=== PATIENT | male | born 1960 | race Caucasian/White ===

== ENCOUNTER 2016-12-03 19:41 | Emergency (ER) | payer SELFPAY ==
[~2016-12-03] VITALS: Ht 177.8 cm; Wt 88.0 kg
[2016-12-03 19:55] VITALS: BP 135/72; PULSE 61; RESP 18; TEMP 98; O2SAT 96
[2016-12-03] MEDS ORDERED: SODIUM CHLOR 0.9% 1000 ML INJ 1,000 ML IV ONE (22:00)
[2016-12-03] MEDS ORDERED: SODIUM CHLORIDE 0.9% FLUSH 10 ML FLUSH IVF PRN (22:00)
[2016-12-03] MEDS ORDERED: KETOROLAC TROMETHAMINE 30 MG/ML (IVP) VIAL IVP ONE (22:00)
--- NOTE | 2016-12-03 22:05 | PD ---
HPI Chief Complaint: GI Complaint Time Seen by Provider: 22:00 Travel History International Travel<30 days: No Contact w/Intl Traveler<30days: No Traveled to known affect area: No History of Present Illness HPI 56-year-old male presents to the emergency department complaining of left flank pain and back pain. Patient states he has had intermittent left flank pain and low back pain for approximately 1-2 months but then today after doing of a twisting-type activity had increased mid to low back pain. Patient denies any lower extremity numbness tingling weakness or bladder or bowel dysfunction. No saddle anesthesia. Patient is also noticed lower abdominal discomfort. Patient denies any dysuria frequency or urgency. Patient states flank pain increasing today. Radiates to the left lower quadrant. No noted hematuria. Patient denies treatment or diagnosis of hypertension dyslipidemia CAD or diabetes. No report of peripheral vascular disease. No report of claudication. Patient denies chest pain or shortness of breath. Patient's had soft stool but denies diarrhea no hematochezia or melena. Patient has had no febrile illness. Patient has taken no medications today for symptoms. Patient has been treated in the past for bronchitis and smoking cigarettes one year ago. Patient denies other concerns or complaints. PFSH Past Medical History Narrative Medical Arthritis, bronchitis,Bipolar disorder, L4 fracture, peripheral neuropathy, no tobacco use times one year; nursing notes reviewed Arthritis: Yes (HANDS AND KNEE'S) Asthma: No Blood Disorders: No Bipolar Disorder: Yes Anxiety: Yes Depression: Yes Heart Rhythm Problems: No Cancer: No Cardiovascular Problems: No High Cholesterol: No Chest Pain: No Congestive Heart Failure: No COPD: No Cerebrovascular Accident: No Diabetes: No Diminished Hearing: No Endocrine: No Gastrointestinal Disorders: Yes GERD: Yes Genitourinary: No Headaches: No Hiatal Hernia: No Hypertension: No Immune Disorder: No Kidney Stones: No Musculoskeletal: Yes (FX L4 IN 1990, FX LEFT WRIST 3 XS CHILD BEFORE AGE 4) Neurologic: Yes (NUMBNESS IN FEET RESOLVED) Psychiatric: Yes Reproductive: No Respiratory: Yes (CHRONIC BRONCHITIS) Integumentary: Yes (STAPH INFECTION ON BACK) Immunizations Current: No Migraines: No Myocardial Infarction: No Renal Failure: No Seizures: No Sleep Apnea: No Thyroid Disease: No Ulcer: No Influenza Vaccination: No Past Surgical History Abdominal Surgery: No AICD: No Arteriovenous Shunt: No Cardiac Surgery: No Ear Surgery: No Endocrine Surgery: No Eye Surgery: No Genitourinary Surgery: No Gynecologic Surgery: No Insulin Pump: No Joint Replacement: No Oral Surgery: Yes ( A CHILD) Pacemaker: No Thoracic Surgery: No Other Surgery: Yes (LONG TIME AGO SURGERY ON MOUTH) Social History Alcohol Use: No (QUIT 2 1/2 YRS) Tobacco Use: Yes (QUIT 11/30/15) Substance Use: No Allergies-Medications (Allergen,Severity, Reaction): Coded Allergies: Cephalosporins (Verified Allergy, Severe, Anaphylaxis, 12/03/16) Penicillin (Verified Allergy, Severe, Anaphylaxis, 12/03/16) Reported Meds & Prescriptions Reported Meds & Active Scripts Active Tramadol (Tramadol HCl) 50 Mg Tab 50 Mg PO Q6H PRN Robaxin (Methocarbamol) 750 Mg Tab 750 Mg PO Q6HR Review of Systems Except as stated in HPI: all other systems reviewed are Neg General / Constitutional: No: Fever, Chills HENT: No: Congestion Cardiovascular: No: Chest Pain or Discomfort Respiratory: No: Shortness of Breath Gastrointestinal: Positive: Diarrhea, Abdominal Pain (loose stool), No: Nausea , Vomiting Genitourinary: Positive: Flank Pain ( left lower quadrant) Musculoskeletal: Positive: Myalgias, Arthralgias, Pain (middle and low back), No: Cramping, Edema Skin: No Rash Neurologic: No: Weakness Psychiatric: No: Anxiety Endocrine: No: Heat Intolerance Hematologic/Lymphatic: No: Easy Bruising Physical Exam Narrative GENERAL: Well-developed nourished female in no acute distress no respiratory distress SKIN: Warm and dry. HEAD: Normocephalic. EYES: No scleral icterus. No injection or drainage. NECK: Supple, trachea midline. No JVD or lymphadenopathy. CARDIOVASCULAR: Regular rate and rhythm without murmurs, gallops, or rubs. RESPIRATORY: Breath sounds equal bilaterally. No accessory muscle use. GASTROINTESTINAL: Abdomen soft, non-tender, nondistended. MUSCULOSKELETAL: No cyanosis, or edema. Bilateral radial pulses 2+ to palpation bilateral dorsalis pedis pulses 2+ to palpation with brisk capillary refill is 2 seconds per digit BACK: Nontender without obvious deformity except tenderness to palpation along the lower thoracic and lumbar spine and over the SI joints left greater than right. Left-sided CVA tenderness. Data Data Last Documented VS Vital Signs Date Time Temp Pulse Resp B/P Pulse Ox O2 Delivery O2 Flow Rate FiO2 12/03/16 23:00 60 15 140/65 98 Room Air 12/03/16 19:55 98.0 Orders Complete Blood Count With Diff (12/03/16 21:58) Basic Metabolic Panel (Bmp) (12/03/16 21:58) Urinalysis - C+S If Indicated (12/03/16 21:58) Ct Abd/Pel W/O Iv Contrast (12/03/16 21:58) Ecg Monitoring (12/03/16 21:58) Iv Access Insert/Monitor (12/03/16 21:58) Ketorolac Inj (Toradol Inj) (12/03/16 22:00) Sodium Chloride 0.9% Flush (Ns Flush) (12/03/16 22:00) Sodium Chlor 0.9% 1000 Ml Inj (Ns 1000 M (12/03/16 22:00) Labs Laboratory Tests Test 12/03/16 12/03/16 12/03/16 22:49 22:55 23:33 White Blood Count 8.0 TH/MM3 Red Blood Count 5.12 MIL/MM3 Hemoglobin 15.8 GM/DL Hematocrit 48.2 % Mean Corpuscular Volume 94.1 FL Mean Corpuscular Hemoglobin 30.8 PG Mean Corpuscular Hemoglobin 32.7 % Concent Red Cell Distribution Width 13.9 % Platelet Count 252 TH/MM3 Mean Platelet Volume 9.1 FL Neutrophils (%) (Auto) 45.3 % Lymphocytes (%) (Auto) 41.5 % Monocytes (%) (Auto) 9.1 % Eosinophils (%) (Auto) 3.0 % Basophils (%) (Auto) 1.1 % Neutrophils # (Auto) 3.7 TH/MM3 Lymphocytes # (Auto) 3.3 TH/MM3 Monocytes # (Auto) 0.7 TH/MM3 Eosinophils # (Auto) 0.2 TH/MM3 Basophils # (Auto) 0.1 TH/MM3 CBC Comment DIFF FINAL Differential Comment Urine Color YELLOW Urine Turbidity CLEAR Urine pH 6.0 Urine Specific [place] 1.013 Urine Protein NEG mg/dL Urine Glucose (UA) NEG mg/dL Urine Ketones NEG mg/dL Urine Occult Blood TRACE Urine Nitrite NEG Urine Bilirubin NEG Urine Leukocyte Esterase NEG Urine RBC 4-9 /hpf Urine WBC 0-2 /hpf Urine Squamous Epithelial 0-5 /hpf Cells Urine Mucus MOD /lpf Microscopic Urinalysis Comment CULT NOT INDICATED Sodium Level 141 MEQ/L Potassium Level 4.2 MEQ/L Chloride Level 109 MEQ/L Carbon Dioxide Level 25.4 MEQ/L Anion Gap 7 MEQ/L Blood Urea Nitrogen 7 MG/DL Creatinine 1.00 MG/DL Estimat Glomerular Filtration 77 ML/MIN Rate Random Glucose 103 MG/DL Calcium Level 8.3 MG/DL MDM Medical Decision Making Medical Screen Exam Complete: Yes Emergency Medical Condition: Yes Medical Record Reviewed: Yes Interpretation(s) CBC & BMP Diagram 12/03/16 22:49 12/03/16 23:33 UA: grossly wnl Last Impressions Abdomen/Pelvis CT 12/03/162157 Signed Impressions: Service Date/Time: Saturday, December 03, 2016 22:07 - CONCLUSION: 1. Mild atherosclerotic disease. 2. Right renal cyst. Frank Connelly MD Vital Signs Date Time Temp Pulse Resp B/P Pulse Ox O2 Delivery O2 Flow Rate FiO2 12/03/16 23:00 60 15 140/65 98 Room Air 12/03/16 19:55 98.0 61 18 135/72 96 Differential Diagnosis Musculoskeletal pain, sciatica, sacroiliitis, HNP, renal colic, UTI, diverticulitis Narrative Course Patient aware of plan to collect specimens to send for evaluation as well as CT kidney stone protocol; evaluate for possible renal colic in view of left lower quadrant pain evaluate for diverticulitis and even assess for vascular abnormality. Patient with obvious musculoskeletal pain and sciatica by physical exam. 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 @ 23:55 patient clinically improved and informed of available diagnostics results Lab values resulted after re-collect agent is stable for outpatient management and follow-up with primary care provider provided resources for community clinic. Diagnosis Primary Impression: Sciatica Qualified Code: M54.32 - Sciatica of left side Referrals: [facility] call for appointment Primary Care Physician as needed Patient Instructions: General Instructions Additional Instructions: Increase fluid hydration Apply moist heat intermittently to affected areas of spasm May use Ultram/tramadol as prescribed as needed for pain greater than 6/10 in intensity use with caution as may impair judgment delay reaction time for increased risk for fall do not use this medication if drinking alcoholic beverages and do not use if driving May use muscle relaxant Robaxin as prescribed as needed use with caution as may impair judgment delay reaction time or increases for fall do not take this medication with alcoholic beverages and do not take while driving May use ibuprofen/Advil/Motrin 600 mg as often as every 6 hours or up to 800 mg as often as every 8 hours avoid high-dose as for greater than 2-3 days. Return to the emergency department for any concerns or change in condition Med/Other Pt SpecificInfo: Prescription(s) given Scripts Tramadol 50 Mg Tab50 Mg PO Q6H PRN (PAIN) #12 TAB Ref 0 Prov:Yocasta Padilla MD 12/03/16 Methocarbamol (Robaxin)750 Mg Glp731 Mg PO Q6HR #12 TAB Ref 0 Prov:Yocasta Padilla MD 12/03/16 Disposition: 01 DISCHARGE HOME Condition: Stable Yocasta Padilla MD Dec 03, 2016 22:04
--- NOTE | 2016-12-03 22:36 | RADHPO ---
EXAM DATE/TIME: 12/03/2016 22:07 [facility] COMPARISON: No previous studies available for comparison. INDICATIONS : Bilateral flank and back pain. ORAL CONTRAST: No oral contrast ingested. RADIATION DOSE: 19.05 CTDIvol (mGy) MEDICAL HISTORY : Gastroesophageal reflux disease. SURGICAL HISTORY : None. ENCOUNTER: Initial ACUITY: 1 day PAIN SCALE: 7/10 LOCATION: Bilateral flank Back. TECHNIQUE: Volumetric scanning of the abdomen and pelvis was performed. Using automated exposure control and ad justment of the mA and/or kV according to patient size, radiation dose was kept as low as reasonably achievable to obtain optimal diagnostic quality images. FINDINGS: There is a 2.1 cm cyst off the lower pole of the right kidney. There were no calculi or hydronephrosi s identified in either kidney. Pancreas, spleen, liver, gallbladder, appendix, stomach, small bowel, large bowel and urinary bladder are unremarkable. There is no adenopathy. No inflammatory changes are seen within the abdomen or pelvis. Prostate unremarkable. Scattered atherosclerotic calcifications o f the aorta and iliac vessels are noted. Lung bases are clear. Osseous structures are intact. CONCLUSION: 1. Mild atherosclerotic disease. 2. Right renal cyst. Frank Connelly MD on December 03, 2016 at 22:32 Board Certified Radiologist. This report was verified electronically.
[2016-12-03 22:56] LABS: AUTOMATED NEUTROPHIL # 3.7 TH/MM3 (1.8-7.7); BASOPHIL # 0.1 TH/MM3 (0-0.2); BASOPHIL % 1.1 % (0.0-2.0); EOSINOPHIL # 0.2 TH/MM3 (0-0.4); HEMATOCRIT 48.2 % (39.0-51.0); HEMO FLAGS DIFF FINAL; LYMPH % 41.5 % (9.0-44.0); LYMPHOCYTE # 3.3 TH/MM3 (1.0-4.8); MEAN CELL VOLUME 94.1 FL (80.0-100.0); MEAN CORPUSCULAR HEMOGLOBIN 30.8 PG (27.0-34.0); MEAN CORPUSCULAR HGB CONC 32.7 % (32.0-36.0); MONO % 9.1 % (0.0-8.0); NEUT % 45.3 % (16.0-70.0); PLATELET COUNT 252 TH/MM3 (150-450); RED BLOOD COUNT 5.12 MIL/MM3 (4.50-5.90); RED CELL DISTRIBUTION WIDTH 13.9 % (11.6-17.2)
[2016-12-03 23:00] VITALS: BP 140/65; PULSE 60; RESP 15; O2SAT 98
[2016-12-03 23:19] LABS: BLOOD, URINE TRACE (NEG); GLUCOSE,URINE NEG (NEG); KETONE, URINE NEG (NEG); NITRITE,URINE NEG (NEG)
[2016-12-03 23:33] LABS: MUCUS URINE MOD /lpf (OCC); SQUAMOUS EPITHELIAL CELL URINE 0-5 /hpf (0-5); URINE COLOR YELLOW (YELLW/STRAW)
[2016-12-03 23:34] LABS: WBC, URINE 0-2 /hpf (0-5)
[2016-12-03 23:35] LABS: COMMENT (UR) CULT NOT INDICATED; CULTURE IF INDICATED CULT NOT INDICATED
[2016-12-03 23:53] VITALS: RESP 15
[2016-12-03 23:58] LABS: BICARBONATE 25.4 MEQ/L (21.0-32.0); POTASSIUM 4.2 MEQ/L (3.5-5.1)
[2016-12-03] MEDS ORDERED: TRAM50TA PO (23:58)
[2016-12-03] MEDS ORDERED: ROBA750T PO (23:58)
[2016-12-04 00:12] VITALS: BP 133/62; TEMP 98.8
== END 2016-12-04 00:24 | disposition home or self-care (01) ==
LOC: PHED 19:41
DX: M54.32 Sciatica, left side (principal); M54.5 Low back pain; R10.9 Unspecified abdominal pain
CPT/HCPCS: 74176; 80048; 81001; 85025; 96361; 96374; 99284; J1885; J7030